=== PATIENT | female | born 1945 ===

== ENCOUNTER 2020-11-02 09:40 | Outpatient (CLI) | payer MEDICARE ==
[~2020-11-02 09:40] MED LIST: Iopamidol-370 76% 500 ML 1 ML ONE
== END 2020-11-02 09:41 | disposition home or self-care (01) ==
LOC: BICCT 09:40
PROVIDERS: ATTEND Internal Medicine
DX: R10.9 Unspecified abdominal pain (principal); Z90.49 Acquired absence of other specified parts of digestive tract
CPT/HCPCS: 74177; 82565; Q9967